=== PATIENT | male | born 1950 | race African-American/Black ===

== ENCOUNTER 2017-10-17 23:35 | Emergency (ER) | payer SELFPAY, MEDICARE ==
[2017-10-18] MEDS: LIDO:MAALOX 1:1 20 ML SINGLE DOSE. SWSW (00:04)
== END 2017-10-18 00:50 | disposition home or self-care (01) ==
LOC: ER 23:35
DX: K21.9 Gastro-esophageal reflux disease without esophagitis (principal); Z88.1 Allergy status to other antibiotic agents; Z98.890 Other specified postprocedural states
CPT/HCPCS: 99282

== ENCOUNTER 2019-01-04 09:43 | Emergency (ER) | payer MEDICARE ==
[~2019-01-04] VITALS: Ht 172.7 cm; Wt 70.3 kg
[2019-01-04] MEDS ORDERED: FAMOTIDINE 20 MG TABLET. PO ONE (10:15)
[2019-01-04] MEDS ORDERED: methylPREDNISolone SOD SUCC PF 125 MG/2 ML VIAL. IM ONE (10:15)
[2019-01-04] MEDS ORDERED: diphenhydrAMINE HCL 25 MG CAPSULE PO ONE (10:15)
[2019-01-04 10:53] VITALS: BP 145/81
[2019-01-04] MEDS ORDERED: FAMO-63 PO (11:25)
[2019-01-04] MEDS ORDERED: PRED50TA PO (11:25)
--- NOTE | 2019-01-04 11:26 | PHYS DOC ---
Past Medical History Past Medical History: GERD Additional Past Surgical Histo: Hemorrhoidectomy Alcohol Use: Occasionally Drug Use: None Adult General Chief Complaint Chief Complaint: ALLERGIC REACTION HPI HPI Patient is a 68 year old male who presented to ER today for evaluation of allergic reaction to chemical spray. Briefly after spraying the chemical to kill ants and mcnulty, patient started having tingling sensation and itching around his lips and mouth area. Patient had anaphylaxis reaction in the past that he started out with the exact symptoms so he came here for evaluation. he denies Any trouble breathing, no trouble swallowing, no chest pain. Patient denies any weakness or numbness anywhere else. Review of Systems Review of Systems Constitutional: Denies fever or chills [] Eyes: Denies change in visual acuity, redness, or eye pain [] HENT: Denies nasal congestion or sore throat [] Respiratory: Denies cough or shortness of breath [] Cardiovascular: No additional information not addressed in HPI [] GI: Denies abdominal pain, nausea, vomiting, bloody stools or diarrhea [] : Denies dysuria or hematuria [] Musculoskeletal: Denies back pain or joint pain [] Integument: Denies rash or skin lesions [] Neurologic: Denies headache, focal weakness or sensory changes [] Endocrine: Denies polyuria or polydipsia [] All other systems were reviewed and found to be within normal limits, except as documented in this note. Current Medications Current Medications Current Medications Medications (Trade) Dose Ordered Sig/Charlee Start Time Stop Time Status Last Admin Dose Admin Diphenhydramine HCl (Benadryl) 25 mg 1X ONCE 01/04/19 10:15 01/04/19 10:16 DC 01/04/19 10:21 25 MG Famotidine (Pepcid) 20 mg 1X ONCE 01/04/19 10:15 01/04/19 10:16 DC 01/04/19 10:21 20 MG Methylprednisolone Sodium Succinate (SOLU-Medrol 125MG VIAL) 125 mg 1X ONCE 01/04/19 10:15 01/04/19 10:16 DC 01/04/19 10:22 125 MG Allergies Allergies Allergies Coded Allergies Type Severity Reaction Last Updated Verified cephalexin Allergy Severe 10/17/17 Yes Physical Exam Physical Exam Constitutional: Well developed, well nourished, no acute distress, non-toxic appearance. [] HENT: Normocephalic, atraumatic, bilateral external ears normal, oropharynx moist, no oral exudates, nose normal. [] Eyes: PERRLA, EOMI, conjunctiva normal, no discharge. [] Neck: Normal range of motion, no tenderness, supple, no stridor. [] Cardiovascular:Heart rate regular rhythm, no murmur [] Lungs & Thorax: Bilateral breath sounds clear to auscultation [] Abdomen: Bowel sounds normal, soft, no tenderness, no masses, no pulsatile masses. [] Skin: Warm, dry, no erythema, no rash. [] Back: No tenderness, no CVA tenderness. [] Extremities: No tenderness, no cyanosis, no clubbing, ROM intact, no edema. [] Neurologic: Alert and oriented X 3, normal motor function, normal sensory function, no focal deficits noted. [] Psychologic: Affect normal, judgement normal, mood normal. [] Current Patient Data Vital Signs Vital Signs Date Time Temp Pulse Resp B/P (MAP) Pulse Ox O2 Delivery O2 Flow Rate FiO2 01/04/19 10:53 59 16 145/81 (102) 99 Room Air 01/04/19 09:50 97.8 97.8 EKG EKG [] Radiology/Procedures Radiology/Procedures [] Course & Med Decision Making Course & Med Decision Making Pertinent Labs and Imaging studies reviewed. (See chart for details) Patient was given medication in the ER, he felt much better. Patient had no sign of angioedema, no trouble breathing, no trouble swallowing. Patient will be discharged home. Dragon Disclaimer Dragon Disclaimer This electronic medical record was generated, in whole or in part, using a voice recognition dictation system. Departure Departure Impression: Primary Impression: Allergic reaction Disposition: HOME, SELF-CARE Condition: STABLE Referrals: UNKNOWN PCP NAME (PCP) FOLLOW UP WITH YOUR FAMILY DOCTOR NEEDED. RETURN IF YOU HAVE WORSE SYMPTOMS. TAKE 25 MG OF BENADRYL EVERY 4 TO 6 HOURS NEEDED FOR ITCHING OR SWELLING. Patient Instructions: Allergies, Generic Scripts Prednisone (PREDNISONE) 50 Mg Tablet 1 TAB PO DAILY, #5 TAB Prov: BOB CORONADO DO 01/04/19 Famotidine (PEPCID) 20 Mg Tablet 20 MG PO HS for 5 Days, #5 TAB Prov: BOB CORONADO DO 01/04/19 BOB CORONADO DO Jan 04, 2019 11:26
== END 2019-01-04 11:30 | disposition home or self-care (01) ==
LOC: ER 09:43
DX: T50.995A Adverse effect of other drugs, medicaments and biological substances, initial encounter (principal); K21.9 Gastro-esophageal reflux disease without esophagitis; Z88.1 Allergy status to other antibiotic agents; Y92.89 Other specified places as the place of occurrence of the external cause
CPT/HCPCS: 96372; 99283; J2930; Q0163